=== PATIENT | female | born 1970 | race African-American/Black ===

== ENCOUNTER → 2018-01-05 18:05 | Outpatient (CLI) | payer MEDICAID ==
[2015-04-19 16:08] VITALS: BMI 18.6
[~2018-01-05 18:05] MED LIST: ASPIRIN325 MG PO; PLAVIX75 MG PO; TIMOPTIC 0.5 % O5 ML EACH EYE
== END | disposition home or self-care (01) ==
LOC: D.MAMMO 16:00
DX: Z12.31 Encounter for screening mammogram for malignant neoplasm of breast (principal)

== ENCOUNTER → 2018-02-18 18:00 | Outpatient (CLI) | payer MEDICAID ==
[2015-04-19 16:08] VITALS: BMI 18.6
== END | disposition home or self-care (01) ==
LOC: D.MAMMO 14:00
DX: R92.8 Other abnormal and inconclusive findings on diagnostic imaging of breast (principal)

== ENCOUNTER 2018-11-02 12:24 | Emergency (ER) | payer MEDICAID ==
[~2018-11-02] VITALS: Ht 165.1 cm; Wt 54.5 kg
[2018-11-02 12:55] VITALS: BP 130/77; Ht 165.1 cm; Wt 54.5 kg
[2018-11-02] MEDS ORDERED: VISTARIL50 MG PO (12:58)
[2018-11-02] MEDS ORDERED: TRAZODONE HCL150 MG PO (12:58)
[2018-11-02] MEDS ORDERED: LISINOPRIL10 MG PO (12:58)
[2018-11-02] MEDS ORDERED: LIPITOR40 MG PO (12:59)
== END 2018-11-02 15:23 | disposition left against medical advice (07) ==
LOC: D.ER 12:24
DX: R05 Cough (principal); R09.89 Other specified symptoms and signs involving the circulatory and respiratory systems

== ENCOUNTER 2018-11-07 05:15 | Emergency (ER) | payer MEDICAID ==
[~2018-11-07] VITALS: Ht 165.1 cm; Wt 56.8 kg
[~2018-11-07 05:15] MED LIST changes: +LIPITOR40 MG PO; +LISINOPRIL10 MG PO; +TRAZODONE HCL150 MG PO; +VISTARIL50 MG PO
[2018-11-07 05:23] VITALS: Ht 165.1 cm; Wt 56.8 kg
[2018-11-07] MEDS ORDERED: ZITHROMAX TRI-500 MG PO (05:30)
[2018-11-07 06:24] VITALS: BP 122/80
== END 2018-11-07 06:24 | disposition home or self-care (01) ==
LOC: D.ER 05:15
DX: J06.9 Acute upper respiratory infection, unspecified (principal); R09.89 Other specified symptoms and signs involving the circulatory and respiratory systems; F17.200 Nicotine dependence, unspecified, uncomplicated

== ENCOUNTER 2019-07-11 00:52 | Emergency (ER) | payer MEDICAID ==
[~2019-07-11] VITALS: Ht 165.1 cm; Wt 55.5 kg
[~2019-07-11 00:52] MED LIST changes: +ZITHROMAX TRI-500 MG PO
[2019-07-11 00:58] VITALS: Ht 165.1 cm; Wt 55.5 kg
[2019-07-11 01:32] LABS: BASOPHILS 0.3 % (0-2); EOSINOPHILS 0.2 % (0-7); IMMATURE GRANULOCYTES 0.7 % (0-5); LYMPHOCYTES 19.6 % (15-50); MCH 30.4 pg (26.0-34.0); MCHC 31.5 g/dL (31.0-37.0); MCV 96.4 fL (80.0-100.0); MEAN PLATELET VOLUME 8.3 fL (7.4-10.4); MONOCYTES 8.9 % (2-11); NEUTROPHILS 70.3 % (40-80); RDW 16.3 % (11.5-14.5); WBC 9.6 10x3/uL (4.8-10.8)
[2019-07-11 01:49] LABS: CALC OSMOLALITY 277 mosm/kg (275-300); CALCIUM 8.6 mg/dL (8.5-10.1); CARBON DIOXIDE 24.2 mmol/L (21.0-32.0); CHLORIDE - SERUM 100 mmol/L (98-107); CREATININE - SERUM 1.2 mg/dL (0.6-1.3); GLUCOSE 130 mg/dL (74-106); HEMATOCRIT 16.2 % (36.0-48.0); HEMOGLOBIN 5.1 g/dL (12-16); PLATELET COUNT 304 10x3/uL (130-400); POTASSIUM - SERUM 4.5 mmol/L (3.5-5.1); RBC 1.68 10x6/uL (4.00-5.40); SODIUM 136 mmol/L (136-145); UREA NITROGEN 25 mg/dL (7-18); eGFR NON AFRICAN AMERICAN 50 mL/min (90-120)
[2019-07-11 01:58] LABS: ALBUMIN 3.3 g/dL (3.4-5.0); ALKALINE PHOSPHATASE 49 U/L (46-116); ALT (SGPT) 31 U/L (10-68); AMYLASE - SERUM 74 U/L (25-115); BILIRUBIN - TOTAL 0.27 mg/dL (0.2-1.3); LIPASE 153 U/L (73-393); PROTEIN - SERUM 6.7 g/dL (6.4-8.2)
[2019-07-11 01:59] LABS: TROPONIN-I < 0.017 ng/mL (0.000-0.060)
[2019-07-11 07:29] LABS: BASOPHILS 0.5 % (0-2); EOSINOPHILS 0.4 % (0-7); IMMATURE GRANULOCYTES 0.6 % (0-5); LYMPHOCYTES 19.1 % (15-50); MCHC 30.8 g/dL (31.0-37.0); MEAN PLATELET VOLUME 8.2 fL (7.4-10.4); MONOCYTES 10.6 % (2-11); NEUTROPHILS 68.8 % (40-80); RDW 15.3 % (11.5-14.5); WBC 8.1 10x3/uL (4.8-10.8)
[2019-07-11 07:31] LABS: RBC 2.24 10x6/uL (4.00-5.40)
[2019-07-11 07:32] LABS: HEMATOCRIT 21.1 % (36.0-48.0); HEMOGLOBIN 6.5 g/dL (12-16); MCV 94.2 fL (80.0-100.0); PLATELET COUNT 220 10x3/uL (130-400)
[2019-07-11 07:58] VITALS: BP 133/71
== END 2019-07-11 08:21 | disposition short-term general hospital (02) ==
LOC: D.ER 00:52
PROVIDERS: Emergency Medicine
DX: K92.2 Gastrointestinal hemorrhage, unspecified (principal); D62 Acute posthemorrhagic anemia; F17.200 Nicotine dependence, unspecified, uncomplicated; I10 Essential (primary) hypertension